=== PATIENT | female | born 1960 | race Caucasian/White ===

== ENCOUNTER 2021-01-05 20:11 | Inpatient (IN) | payer SELFPAY ==
[2021-01-05 20:23] VITALS: BP 158/88; PULSE 70; RESP 24; TEMP 36.7; O2SAT 93; BMI 25.7
--- NOTE | 2021-01-05 20:28 | XRR_ITS ---
PROCEDURE INFORMATION: Exam: XR Chest Exam date and time: 01/05/2021 8:28 PM Age: 60 years old Clinical indication: Dyspnea TECHNIQUE: Imaging protocol: XR of the chest. Views: 1 view. COMPARISON: No relevant prior studies available. FINDINGS: Lungs: Unremarkable. No consolidation. Pleural spaces: Unremarkable. No pleural effusion. No pneumothorax. Heart/Mediastinum: Unremarkable. No cardiomegaly. Bones/joints: Unremarkable. XR/XR chest 1V portable [id number] IMPRESSION: Unremarkable
--- NOTE | 2021-01-05 20:30 | ED_ITS ---
HPI - SOB/Dyspnea General: Chief Complaint: Shortness of Breath/Dyspnea Stated Complaint: SOB Time Seen by Provider: 01/05/21 20:16 History of Present Illness: HPI Narrative: 60-year-old female comes in complaining of increasing shortness of breath and cough over about the last 10 to 14 days no chest pain or fever. She has a chronic cough she is a lifelong smoker +1 pack/day. Patient has not treated for COPD although she has gotten an inhaler from her friend she is not been prescribed any inhalers she has not been known to been diagnosis of COPD in the past she denies any chest pain. She is not usually on oxygen on arrival here is now requiring 5 L by nasal cannula to maintain sats in the mid 50s. MD elicited complaint: shortness of breath and cough Pertinent past history: COPD Onset (ago): minute(s) Timing: constant Severity: moderate Exacerbating factors: exertion and coughing Relieving factors: nothing Known history of: COPD Associated symptoms: Reports chest congestion, cough and syncope; Deny abdominal pain, chest pain, diaphoresis, dizziness, extremity pain, fever(s), hemoptysis, lightheadedness, myalgias, nausea, orthopnea, palpita tions, paresthesias, polydipsia, polyuria, rash, sense of impending doom or vomiting Treatment prior to arrival: oxygen Review of Systems Const: Denies: fever(s) or diaphoresis ENMT: Denies: throat pain, ear or mastoid pain, nasal discharge or nasal congestion Card: Reports: syncope; Denies: chest pain, palpitations, lightheadedness or orthopnea Resp: Reports: chest congestion; Denies: hemoptysis GI: Denies: abdominal pain, nausea or vomiting : Denies: flank pain, difficulty voiding, dysuria, urinary frequency or urinary urgency Musc: Denies: extremity pain Skin/Breast: Denies: rash or pruritus Neuro: Denies: dizziness Endo: Denies: polyuria or polydipsia Physical Exam Const: COMMON NORMALS: no acute distress GENERAL APPEARANCE: cooperative and comfortable ORIENTATION/CONSCIOUSNESS: Yes awake, Yes oriented to person, Yes oriented to place and Yes oriented to time HENMT: COMMON NORMALS: normocephalic, atraumatic and hearing grossly normal bilaterally HEAD & SCALP: normocephalic and atraumatic Neck/C-Spine: COMMON NORMALS: no JVD Resp: AUSCULTATION: rhonchi and wheezes Cardio: COMMON NORMALS: no JVD, regular rate, regular rhythm and No murmurs present (Cardio) RATE: regular rate RHYTHM: regular rhythm GI: COMMON NORMALS: Soft to palpation and No hepatosplenomegaly present AUSCULTATION: Yes normoactive bowel sounds PALPATION: Yes Soft to palpation, No Tenderness to palpation present (GI), No Guarding due to palpation present (GI) and Yes No hepatosplenomegaly present Extremity: COMMON NORMALS: normal to inspection, capillary refill normal, no clubbing, cyanosis or edema, no calf tenderness and no pedal edema Neuro: SENSORIUM/ORIENTATION: Yes oriented to person, Yes oriented to place and Yes oriented to time Skin: COMMON NORMALS: no rashes or lesions noted GENERAL SKIN EXAM: no rashes or lesions noted Course Vital Signs: Vital signs: Vital Signs Temperature 98.1 F 01/05/21 20:23 Pulse Rate 60 01/05/21 22:55 Respiratory Rate 18 01/05/21 22:55 Blood Pressure 137/73 01/05/21 22:55 Pulse Oximetry 96 01/05/21 22:55 MDM - SOB/Dyspnea MDM Narrative: Medical decision making narrative: Rapid antigen negative. I do suspect she has Covid given her presenting symptoms and sudden need for higher dose of oxygen. She is given dexamethasone. I am also going to start her on Levaquin, there is early potential infiltrate at the left base. Discussed with Dr. Flores orders written. Lab Data: Labs: Lab Results 01/05/21 01/05/21 01/05/21 Range/Units 20:25 20:25 20:25 WBC 6.3 (4.0-10.0) 10^3/ uL RBC 4.51 (4.1-5.3) 10^6/u L Hgb 13.6 (11.5-15.3) g/dL Hct 42.4 (37.0-47.0) % MCV 94.0 (81-99) fL MCH 30.2 (28.0-34.0) pg MCHC 32.1 (30.0-36.0) g/dL RDW 13.3 (12.1-15.1) % Plt Count 270 (130-400) 10^3/c mm MPV 8.5 (7.4-10.4) fL Neut % (Auto) 58.7 % Lymph % (Auto) 19.6 % [place] % (Auto) 7.6 % Eos % (Auto) 12.0 % Baso % (Auto) 1.6 % Neut # (Auto) 3.71 (1.8-7.7) 10^3/u L Lymph # (Auto) 1.2 (0.8-4.8) 10^3/u L [place] # (Auto) 0.5 (0.2-0.9) 10^3/u L Eos # (Auto) 0.8 (0.0-0.8) 10^3/u L Baso # (Auto) 0.1 (0.0-0.1) 10^3/u L Nucleated RBC % (a uto) 0 % Nucleated RBCs # 0.0 /100WBC D-Dimer <= 0.27 (0-0.59) ug/mIFE U Sodium 140 (136-145) mmol/L Potassium 3.9 (3.5-5.1) mmol/L Chloride 103 (98-107) mmol/L Carbon Dioxide 24 (22-29) mmol/L Anion Gap 16.9 (5-19) BUN 9 (8-23) mg/dL Creatinine 0.5 (0.5-0.9) mg/dL GFR Calculation 125.4 (90-130) mL/min Glucose 98 (65-115) mg/dL Calculated Osmolal ity 289 (285-295) mOsm/k g Lactic Acid (0.5-2.2) mmol/L Calcium 9.3 (8.5-10.5) mg/dL Total Bilirubin 0.3 (0.15-1.2) mg/dL AST 22 (0-32) U/L ALT 13 (0-33) U/L Alkaline Phosphata se 84 (35-105) IU/L C-Reactive Protein 1.0 (0.0-4.9) mg/L Total Protein 7.3 (6.6-8.7) g/dL Albumin 4.2 (3.5-5.2) g/dL Globulin 3.1 (1.3-4.6) g/dL SARS-CoV-2 Ag (Rap id) (Negative) 01/05/21 01/05/21 Range/Units 20:47 21:58 WBC (4.0-10.0) 10^3/ uL RBC (4.1-5.3) 10^6/u L Hgb (11.5-15.3) g/dL Hct (37.0-47.0) % MCV (81-99) fL MCH (28.0-34.0) pg MCHC (30.0-36.0) g/dL RDW (12.1-15.1) % Plt Count (130-400) 10^3/c mm MPV (7.4-10.4) fL Neut % (Auto) % Lymph % (Auto) % [place] % (Auto) % Eos % (Auto) % Baso % (Auto) % Neut # (Auto) (1.8-7.7) 10^3/u L Lymph # (Auto) (0.8-4.8) 10^3/u L [place] # (Auto) (0.2-0.9) 10^3/u L Eos # (Auto) (0.0-0.8) 10^3/u L Baso # (Auto) (0.0-0.1) 10^3/u L Nucleated RBC % (a uto) % Nucleated RBCs # /100WBC D-Dimer (0-0.59) ug/mIFE U Sodium (136-145) mmol/L Potassium (3.5-5.1) mmol/L Chloride (98-107) mmol/L Carbon Dioxide (22-29) mmol/L Anion Gap (5-19) BUN (8-23) mg/dL Creatinine (0.5-0.9) mg/dL GFR Calculation (90-130) mL/min Glucose (65-115) mg/dL Calculated Osmolal ity (285-295) mOsm/k g Lactic Acid 0.8 (0.5-2.2) mmol/L Calcium (8.5-10.5) mg/dL Total Bilirubin (0.15-1.2) mg/dL AST (0-32) U/L ALT (0-33) U/L Alkaline Phosphata se (35-105) IU/L C-Reactive Protein (0.0-4.9) mg/L Total Protein (6.6-8.7) g/dL Albumin (3.5-5.2) g/dL Globulin (1.3-4.6) g/dL SARS-CoV-2 Ag (Rap id) Negative (Negative) Discharge Plan Discharge Patient Disposition: Admitted As Inpatient Clinical Impression: Left lower lobe pneumonia, Acute exacerbation of chronic obstructive airways disease, Suspected 2019-nCoV infection Condition: Stable Patient Instructions: Opioid Safety Coding Level of Care Code ED Tub Wash Operator for Andrea Fwd Exam Comprehensive
[2021-01-05] MEDS: dexamethasone 4 mg/mL INJ 6 MG IVP (20:42)
[2021-01-05 20:46] LABS: Basophils # 0.1 10^3/uL (0.0-0.1); Basophils % 1.6 %; Eosinophils # 0.8 10^3/uL (0.0-0.8); Hematocrit 42.4 % (37.0-47.0); Hemoglobin 13.6 g/dL (11.5-15.3); Lymphocytes # 1.2 10^3/uL (0.8-4.8); Lymphocytes % 19.6 %; Mean Corpuscular HGB Conc 32.1 g/dL (30.0-36.0); Mean Corpuscular Hemoglobin 30.2 pg (28.0-34.0); Mean Platelet Volume 8.5 fL (7.4-10.4); Monocytes # 0.5 10^3/uL (0.2-0.9); Monocytes % 7.6 %; Neutrophils # 3.71 10^3/uL (1.8-7.7); Neutrophils % 58.7 %; Nucleated Red Blood Cells % 0 %; Platelet Count 270 10^3/cmm (130-400); Red Blood Count 4.51 10^6/uL (4.1-5.3); Red Cell Distribution Width 13.3 % (12.1-15.1); White Blood Count 6.3 10^3/uL (4.0-10.0)
[2021-01-05 21:09] LABS: D Dimer <= 0.27 ug/mIFEU (0-0.59)
[2021-01-05 21:16] LABS: Alanine Aminotransferase 13 U/L (0-33); Albumin Level 4.2 g/dL (3.5-5.2); Alkaline Phosphatase 84 IU/L (35-105); Anion Gap 16.9 (5-19); Aspartate Amino Transferase 22 U/L (0-32); Blood Urea Nitrogen 9 mg/dL (8-23); Calcium 9.3 mg/dL (8.5-10.5); Carbon Dioxide 24 mmol/L (22-29); Chloride 103 mmol/L (98-107); Globulin 3.1 g/dL (1.3-4.6); Glomerular Filtration Rate 125.4 mL/min (90-130); Glucose 98 mg/dL (65-115); Osmolality Calculated 289 mOsm/kg (285-295); Potassium 3.9 mmol/L (3.5-5.1); Sodium 140 mmol/L (136-145); Total Bilirubin 0.3 mg/dL (0.15-1.2); Total Protein 7.3 g/dL (6.6-8.7)
[2021-01-05 21:47] LABS: SARS Covid-2 Antigen Negative (Negative)
[2021-01-05 21:57] VITALS: BP 172/76; PULSE 78; RESP 18; O2SAT 98
[2021-01-05 22:14] VITALS: BP 131/76; PULSE 67; RESP 16; O2SAT 96
[2021-01-05 22:36] LABS: Lactic Sepsis W/Reflex 0.8 mmol/L (0.5-2.2)
[2021-01-05 22:55] VITALS: BP 137/73; PULSE 60; RESP 18; O2SAT 96
[2021-01-05] MEDS: levofloxacin-dextrose 5 % 750 MG/150 ML PREMIX 100 MG IV (22:57)
[2021-01-06] VITALS (14 sets, daily range): BP systolic 108–148; BP diastolic 61–87; PULSE 62–78; RESP 16–22; TEMP 36.4–36.7; O2SAT 91–98
[2021-01-06] MEDS: sodium chloride 0.9% 1,000 ML 100 ML IV ×2 (06:07→18:04)
[2021-01-06 06:10] LABS: Basophils % 0.7 %; Eosinophils % 0.3 %; Hematocrit 44.9 % (37.0-47.0); Hemoglobin 13.8 g/dL (11.5-15.3); Lymphocytes # 0.7 10^3/uL (0.8-4.8); Lymphocytes % 12.6 %; Mean Corpuscular HGB Conc 30.7 g/dL (30.0-36.0); Mean Corpuscular Hemoglobin 30.7 pg (28.0-34.0); Mean Corpuscular Volume 99.8 fL (81-99); Mean Platelet Volume 8.9 fL (7.4-10.4); Monocytes # 0.2 10^3/uL (0.2-0.9); Monocytes % 3.2 %; Neutrophils # 4.88 10^3/uL (1.8-7.7); Neutrophils % 82.9 %; Nucleated Red Blood Cells % 0 %; Platelet Count 282 10^3/cmm (130-400); Red Cell Distribution Width 13.4 % (12.1-15.1); White Blood Count 5.9 10^3/uL (4.0-10.0)
--- NOTE | 2021-01-06 06:28 | P.HP_ITS ---
Providers/Chief Complaint Admitting Physician: Martina Rodriguez Chief Complaint: SOB History of Present Illness Tiffany Jameson is a 60 year old female With longstanding history of tobacco abuse and COPD was presented to the hospital with progressively worsening respiratory distress. Patient noted subjective fever and chills. noted product hardik cough.Laboratory workup on arrival showed a WBC of 6.3, hemoglobin of 13.6, hematocrit of 42.4 and a platelet count of 270. Sodium 140, potassium 3.9, chloride 103, bicarb 24, BUN 9 and creatinine of 0.5. C-reactive protein 1.0. AST, ALT negative. COVID-19 ag negatie. PCR pending. Chest x-ray - no acute findings. Patient was requiring 5 L of O2 via nasal cannula at which point she was admitted to the hospital. Review of Systems General: Reports: 10 or more systems reviewed and unremarkable except in HPI and below Medications/Allergies Allergies Allergy/AdvReac Type Severity Reaction Status Date / Time No Known Allergies Allergy Verified 01/05/21 20:23 Vitals/I&O/Wt Last Vital Signs Temp 97.6 F 01/06/21 03:30 Pulse 67 01/06/21 06:10 Resp 22 H 01/06/21 03:30 BP 148/87 01/06/21 03:30 Pulse Ox 95 01/06/21 06:10 01/05/21 01/05/21 01/06/21 14:59 22:59 06:59 Intake Total 570 / 570 Balance 570 / 570 Weight last 48 hrs Weight 68.039 kg Physical Exam Narrative: EXAM NARRATIVE: General-no apparent distress HEENT -grossly unremarkable CVS-regular rate rhythm Chest- nonlabored respiration Extremities-no edema Data : 01/05/21 20:25 01/05/21 20:25 Micro: Microbiology 01/05/21 21:58 Blood Culture - Preliminary Blood SPECIMEN COLLECTED 01/05/21 22:01 Blood Culture - Preliminary Blood SPECIMEN COLLECTED A&P Assessment and plan (1) Acute exacerbation of chronic obstructive airways disease: Supplemental oxygen as needed Steroids Scheduled nebulizer treatments Empiric ABX coverage Nicotine p.r.n. Wean oxygen as tolerated Home O2 eval at the time of discharge COVID-19 PCR pending Status: Acute Attestations Medical Necessity Statement*: Anticipate over 2 midnights stay in hospital for evaluation and treatment of COPD exacerbation Time Spent in Patient Care: Greater than 35 minutes (>than 50% of time spent in counselling and/or direct pt care on unit) . Coding Level of Care Code Acute Staple Laster for Andrea [place] Diagnoses Acute exacerbation of chronic obstructive airways disease J44.1
[2021-01-06 06:42] LABS: Anion Gap 13.2 (5-19); Blood Urea Nitrogen 7 mg/dL (8-23); Carbon Dioxide 26 mmol/L (22-29); Chloride 101 mmol/L (98-107); Glomerular Filtration Rate 125.4 mL/min (90-130); Glucose 114 mg/dL (65-115); Osmolality Calculated 281 mOsm/kg (285-295); Potassium 4.2 mmol/L (3.5-5.1); Sodium 136 mmol/L (136-145)
[2021-01-06] MEDS: enoxaparin 40 mg/0.4 mL Syringe SUBCUT (08:19)
[2021-01-06] MEDS: pantoprazole DR 40 mg Tablet PO (08:20)
[2021-01-06] MEDS: azithromycin 250 mg Tablet 500 MG PO (08:20)
[2021-01-06 14:03] LABS: Coronavirus Test Green County Not Detected
[2021-01-06] MEDS: ipratropium-albuterol 3 mL Neb INHALATION ×2 (14:52→22:40)
--- NOTE | 2021-01-06 18:27 | PM.PN ---
Subjective Subjective: Interval history: Pt admitted this am. feels better. cough/spasm when i spoke iwth her. Says she usually coughs up sputum daily but not with this illness. Still smokes 1ppd. Has not been told COPD but doesn't go to doctor due to finances. Vitals/I&O/Wt Last Vital Signs Temp 98.1 F 01/06/21 15:46 Pulse 74 01/06/21 15:46 Resp 18 01/06/21 15:46 BP 123/72 01/06/21 15:46 Pulse Ox 98 01/06/21 15:46 01/06/21 01/06/21 01/06/21 06:59 14:59 22:59 Intake Total 570 / 570 240 / 240 1000 / 1240 Balance 570 / 570 240 / 240 1000 / 1240 Weight last 48 hrs Weight 68.039 kg Physical Exam Narrative: EXAM NARRATIVE: Patient appears slightly older than her stated age. Patient had a prolonged coughing spell while I was there. Displaying moderate distress. A cool cloth and fan helped. Heart regular normal S1-S2 without murmurs clicks gallops or rubs Lungs diminished throughout equally with expiratory wheezing. Abdomen soft nontender nondistended positive bowel sounds n Extremities no clubbing cyanosis or edema Data : 01/06/21 05:17 01/06/21 05:17 Micro: Microbiology 01/05/21 21:58 Blood Culture - Preliminary Blood SPECIMEN COLLECTED 01/05/21 22:01 Blood Culture - Preliminary Blood SPECIMEN COLLECTED A&P Assessment and plan (1) Acute exacerbation of chronic obstructive airways disease: continue zmax, fluids, steroids and nebs Status: Acute (2) Suspected 2019-nCoV infection: await cx Status: Acute Additional A&P Information CM for assistance with insurance. Paperwork for erum in room Advised to quit smoking. Declines nicotine patch. Attestations Medical Necessity Statement*: acute respiratory distress requiring greater than 2 MN for improvement. Coding Level of Care Code Acute Television Antenna Installer for Andrea [place] Diagnoses Acute exacerbation of chronic obstructive airways disease J44.1 Suspected 2019-nCoV infection Z20.822
[2021-01-07] VITALS (13 sets, daily range): BP systolic 115–135; BP diastolic 66–81; PULSE 61–103; RESP 16–20; TEMP 36.4–37.1; O2SAT 89–97
[2021-01-07] MEDS: sodium chloride 0.9% 1,000 ML 100 ML IV (05:14)
[2021-01-07 06:26] LABS: Anion Gap 13.9 (5-19); Blood Urea Nitrogen 14 mg/dL (8-23); Calcium 8.6 mg/dL (8.5-10.5); Carbon Dioxide 26 mmol/L (22-29); Chloride 103 mmol/L (98-107); Glomerular Filtration Rate 125.4 mL/min (90-130); Glucose 121 mg/dL (65-115); Magnesium 2.1 mg/dL (1.7-2.3); Osmolality Calculated 290 mOsm/kg (285-295); Potassium 3.9 mmol/L (3.5-5.1); Sodium 139 mmol/L (136-145)
[2021-01-07 06:32] LABS: Procalcitonin 0.02 ng/mL (0-0.5)
[2021-01-07] MEDS: ipratropium-albuterol 3 mL Neb INHALATION ×2 (07:40→15:42)
[2021-01-07] MEDS: enoxaparin 40 mg/0.4 mL Syringe SUBCUT (07:57)
[2021-01-07] MEDS: pantoprazole DR 40 mg Tablet PO (08:01)
[2021-01-07] MEDS: azithromycin 250 mg Tablet 500 MG PO (08:01)
--- NOTE | 2021-01-07 14:34 | PM.PN ---
Subjective Subjective: Interval history: Reports feeling better today. Only the one cough/spasm yesterday. Vitals/I&O/Wt Last Vital Signs Temp 97.5 F L 01/07/21 11:41 Pulse 72 01/07/21 11:41 Resp 18 01/07/21 11:41 BP 122/73 01/07/21 11:41 Pulse Ox 97 01/07/21 11:41 01/06/21 01/07/21 01/07/21 22:59 06:59 14:59 Intake Total 1240 / 1480 1000 / 2480 120 / 120 Balance 1240 / 1480 1000 / 2480 120 / 120 Weight last 48 hrs Weight 68.039 kg Physical Exam Narrative: EXAM NARRATIVE: Patient appears slightly older than her stated age. NAD Heart regular normal S1-S2 without murmurs clicks gallops or rubs Lungs diminished throughout equally without wheeze today Abdomen soft nontender nondistended positive bowel sounds n Extremities no clubbing cyanosis or edema Data : 01/06/21 05:17 01/07/21 05:27 Micro: Microbiology 01/05/21 22:01 Blood Culture - Preliminary Blood NEGATIVE TO DATE 01/05/21 21:58 Blood Culture - Preliminary Blood NEGATIVE TO DATE A&P Assessment and plan (1) Acute exacerbation of chronic obstructive airways disease: continue zmax and fluids and nebs decrease steroids 40 mg to q12hr. anticipate d/c soon. Wean oxygen to RA if possible. home oxygen eval in am. Status: Acute (2) Suspected 2019-nCoV infection: negative Status: Ruled-out Additional A&P Information CM for assistance with insurance. Paperwork for charitycompeted in room Advised to quit smoking. Declines nicotine patch. Attestations Medical Necessity Statement*: acute respiratory failure on oxygen and requiring fluids and oxygen. Coding Level of Care Code Acute Cost Estimator for Andrea [place] Diagnoses Acute exacerbation of chronic obstructive airways disease J44.1 Suspected 2019-nCoV infection Z20.822
[2021-01-08] VITALS (7 sets, daily range): BP systolic 126–133; BP diastolic 75–83; PULSE 60–91; RESP 15–20; TEMP 36.7–36.8; O2SAT 89–97
[2021-01-08] MEDS: enoxaparin 40 mg/0.4 mL Syringe SUBCUT (08:05)
[2021-01-08] MEDS: pantoprazole DR 40 mg Tablet PO (08:06)
[2021-01-08] MEDS: azithromycin 250 mg Tablet 500 MG PO (08:06)
--- NOTE | 2021-01-08 09:37 | P.DS_ITS ---
Discharge Providers Date of Admission: 01/06/21 01:58 Date of Discharge: January 08, 2021 Attending Provider at Admission: Martina Rodriguez Attending Provider at Discharge: Jeremy Lund DO Diagnoses at Discharge Discharge Diagnosis (1) Acute exacerbation of chronic obstructive airways disease: Status: Acute (2) Suspected 2019-nCoV infection: Status: Ruled-out (3) Tobacco abuse: Status: Acute (4) Tobacco abuse counseling: Status: Acute (5) Left lower lobe pneumonia: Status: Acute Reason for Visit Reason for Visit: SOB Hospital Course Hospital Course -year-old female with long history of tobacco abuse and suspected underlying COPD presented to the hospital with progressively worsening respiratory distress. The patient noted subjective fever and chills and nonproductive cough. Laboratory work-up showed a normal WBC, COVID-19 negative and chest x- ray with no acute findings. The patient was requiring 5 L of liters of oxygen via nasal cannula at point she was admitted to the hospital. Patient was treated as a COPD exacerbation with Zithromax, oxygen fluids and steroids. Patient showed steady improvement over the next couple of days and was able to be weaned to room air the morning of the . Covid PCR was negative. Home O2 evaluation is pending at time of dictation. If patient requires home oxygen will discharge with agency for home O2. Patient will be placed on oral steroids antibiotic and inhalers. Patient with financial difficulties case management has been consulted and is assisting with financial auditor and follow-up. Physical Exam Narrative: EXAM NARRATIVE: EXAM NARRATIVE: Patient appears slightly older than her stated age. NAD Heart regular normal S1-S2 without murmurs clicks gallops or rubs Lungs diminished throughout equally without wheeze again today and better aeration. Abdomen soft nontender nondistended positive bowel sounds n Extremities no clubbing cyanosis or edema Discharge Data Data Completed and Pending: Completed Studies During Hospitalization Category Date Time Status XR chest 1V mumtaz ble [id number] Stat Exams 01/05/21 20:28 Completed Pending at discharge Category Date Time Status Blood Culture Sta t Lab 01/05/21 21:58 Results Vitals: Last Vital Signs Temp 98.3 F 01/08/21 08:59 Pulse 62 01/08/21 08:59 Resp 15 01/08/21 08:59 BP 126/80 01/08/21 08:59 Pulse Ox 89 L 01/08/21 08:59 Discharge Plan Discharge Patient Disposition: Home Condition: Stable Prescriptions: New ipratropium-albuterol 0.5 mg-3 mg(2.5 mg base)/3 mL Solution For Nebulization 3 ml inhalation Q6H PRN (Reason: Shortness Of Breath) Qty: 90 RF: 0 Pulmicort Flexhaler 90 mcg/actuation aerosol powdr breath activated 1 inh inhalation BID Qty: 1 RF: 0 fluticasone propion-salmeterol [Advair Diskus] 250-50 mcg/dose blister with device 1 inh inhalation BID Qty: 60 RF: 0 azithromycin 250 mg Tablet 500 mg PO DAILY Qty: 6 RF: 0 prednisone 20 mg tablet 40 mg PO DAILY 3 Days Qty: 6 RF: 0 No Action No Known Home Medications RF: 0 Discharge Orders: Discharge Order (Routine); Ordered 01/08/21 Ordered By: Jeremy Lund Discharge Diet: Usual diet Discharge Activity: Increase activity as tolerated Activity Restrictions/Additional Instructions: RN or CM to arrange PCP follow up. STrongly recommend smoking cessation. Note a phsycian can assist with medication if you desire. Discharge Attestations Time Spent in Discharge Care*: greater than 30 min Quality Metrics Clinical Quality Measures During this hospital stay, did patient experience: None Coding Level of Care Code Acute Chg FW DC note Diagnoses Acute exacerbation of chronic obstructive airways disease J44.1 Suspected 2019-nCoV infection Z20.822 Tobacco abuse Z72.0 Tobacco abuse counseling Z71.6 Left lower lobe pneumonia J18.9
[2021-01-08] MEDS: ipratropium-albuterol 3 mL Neb INHALATION (10:43)
== END 2021-01-08 13:50 | disposition home or self-care (01) | DRG 192 ==
LOC: ER 01-06 01:38 → MEDSURG 01-06 02:30
PROVIDERS: Admitting Provider Hospitalist; Emergency Provider Family Medicine; Visit Provider Internal Medicine
DX: J44.1 Chronic obstructive pulmonary disease with (acute) exacerbation (principal); F17.210 Nicotine dependence, cigarettes, uncomplicated; Z20.822 Contact with and (suspected) exposure to COVID-19; Z71.6 Tobacco abuse counseling
CPT/HCPCS: 36415; 71045; 80048; 80053; 83605; 83735; 84145; 85025; 85378; 86140; 87040; 87426; 87635; 94640; 96365; 96372; 96375; 99285; J1100; J1650; J1956; J2920; J7030; Q0144

== ENCOUNTER 2022-04-14 09:11 | Outpatient (CLI) | payer OTHER, SELFPAY ==
--- NOTE | 2022-04-14 09:22 | XR_ITS ---
WS: [id number] Right wrist, AP and lateral views, 04/14/2022 Clinical Data: RIGHT WRIST PAIN Comparison: None. Findings: No fractures or dislocations are seen. The carpal bones are intact. There is no soft tissue swelling. The distal radius and ulna are not remarkable. XR/XR wrist RT 2V [id number] Impression: Negative right wrist.
--- NOTE | 2022-04-14 09:22 | XR_ITS ---
WS: [id number] Right knee, AP and lateral views, 04/14/2022 Clinical Data: KNEE PAIN Comparison: None. Findings: No fractures or dislocations are seen. There is medial joint compartment narrowing with small spurs o f the medial tibial plateau and medial femoral condyle.. The patella is intact without spurring. The soft tissues are unremarkable. XR/XR knee RT 1-2V [id number] Impression: Mild osteoarthritis of the right knee with medial joint compartment narrowing. Kellgren-Reggie Classification: grade 2 (minimal): definite osteophytes and p ossible joint space narrowing
== END 2022-04-14 09:12 | disposition home or self-care (01) ==
PROVIDERS: Visit Provider Dermatology
DX: Z02.71 Encounter for disability determination (principal); M25.531 Pain in right wrist; M17.9 Osteoarthritis of knee, unspecified
CPT/HCPCS: 73100; 73560